=== PATIENT | male | born 1985 | race Hispanic/Latino ===

== ENCOUNTER 2025-06-20 15:46 | Emergency (ER) | payer OTHER, SELFPAY ==
[2025-06-20 15:51] VITALS: BP 130/78; PULSE 79; RESP 16; TEMP 36; O2SAT 100; BMI 31.7
--- NOTE | 2025-06-20 16:01 | CT_ITS ---
PROCEDURE: CT SPINE CERVICAL WITHOUT CONTRAST 06/20/2025 REASON FOR EXAM: INJURY/PAIN TECHNIQUE: Procedure Code: CTSPC Modality: CT Procedure: SPINE CERVICAL WITHOUT CONTRAS Coronal and Sagittal reconstruction series were provided. One or more dose reduction techniques were used (e.g., Automated exposure control, adjustment of the mA and/or kV according to patient size, use of iterative reconstruction technique. RADIATION DOSE SUMMARY: CTDlvol: 24.55 mGy DLP: 519.69 mGycm COMPARISON: None. FINDINGS: No acute fracture or subluxation. Straightening of the cervical lordosis is likely positional, or could reflect muscle spasm. No substantial degenerative changes appreciated. No prevertebral soft tissue swelling. Clear visualized lung apices. CT/Spine Cervical without Contras IMPRESSION: No acute fracture or subluxation. Reading Location: [id number]
--- NOTE | 2025-06-20 16:12 | EDS_ITS ---
HPI History of Present Illness Chief Complaint: Fall Detail of Chief Complaint: Fall down flight of steps Informant: patient Onset/Context/Timing Onset: Yesterday Mechanism/Context: Blunt Injury and Fall Location of pain/injuries: Right hip, Right thigh and - (Neck) Quality of Pain: Dull Location: Posterior neck and right hip region Current Severity: Mild Maximum Severity: Moderate Worsened by: Palpation and movement Relieved by: Nothing Associated Symptoms Associated Symptoms: Negative for Parasthesias, Weakness, Loss of function, Inability to ambulate, Loss of consciousness or Amnesia Narrative Narrative: Patient is a 39-year-old male. He is on a diabetic med. He was removing the door to the basement. When he pulled the last pin he lost his balance and went down the steps with the door. He states the door got wedged into the wall. He fell backwards hitting the back of his head. He had no loss of conscious. He is not amnestic. He denies headache. He denies nausea or vomiting. He denies double vision, blurred vision or loss of vision. He denies ringing in his ears or decreased hearing. He does complain of neck pain. He does complain of tingling in his right hand. This occurred since the fall. He denies chest pain, pressure or tightness. He denies pain with breathing. He denies shortness of breath at rest or activity. He denies abdominal pain. He denies nausea or vomiting. He denies dysuria, frequency, urgency or hematuria. He does complain of right hip pain which he localizes to the greater trochanteric region. He states he has pain with movement and weightbearing. He denies paresthesia, anesthesia or weakness in his lower extremities or left upper extremity. Prior similar symptoms: No Recent Illness/Hospitalization: No [facility] Medical History Diabetes mellitus Home Medications ?Medication ?Instructions ?Recorded ?Last Taken ?Type naproxen 500 mg tablet 500 mg PO BID #14 tabs 06/20 Unknown Rx Allergy/AdvReac Type Severity Reaction Status Date / Time No Known Allergies Allergy Verified 06/20/25 15:52 Social History (Updated 06/20/25 @ 16:[address] Lavell Remy MD) household members: spouse Smoking Status: Never smoker ROS ROS ED Eyes Eyes: Denies blurry vision or change in vision ENT ENT ED: Denies ear pain, rhinorrhea or sore throat Cardiovascular Cardiovascular: Denies chest pain, palpitations or racing heartbeat Respiratory/Chest Respiratory/Chest: Denies cough, dyspnea or dyspnea on exertion Gastrointestinal Gastrointestinal: Denies abdominal pain, melena, nausea or vomiting Genitourinary Genitourinary ED: Denies dysuria, hematuria or urinary frequency Musculoskeletal Musculoskeletal: Reports neck pain and other Details: Detailed HPI narrative ; Denies arthralgias, back pain or myalgias Integumentary Reports Abrasions and other Details: Abrasion posterior right parietal occipital region. Neurologic Neurologic: Denies headache(s), paresthesias or weakness Endocrine Endocrinology: Denies cold intolerance or heat intolerance Hematologic/Lymphatic Hematologic/Lymphatic: Denies easy bleeding or easy bruising EXAM Physical Exam Const Vital Signs: 06/20/25 15:51 06/20/25 16:00 Temperature 96.8 F L Temperature Source Temporal Pulse Rate 79 Respiratory Rate 16 Respiratory Effort Normal Respiratory Depth Normal Respiratory Pattern Normal Blood Pressure 130/78 H Blood Pressure Mean 95 Pulse Ox 100 Oxygen Delivery Method Room Air Room Air Positive well nourished and well developed General Appearance ED: well developed and NAD HEENT Denies TM's clear HEENT Narrative: There is no dental trauma. Uvula midline. No deviation tongue or protrusion. trauma and tenderness; Negative for atraumatic Nose: Negative for septum abnormal Tympanic Membrane ED: Negative for TM's clear Eyes PERRL and EOMs intact bilaterally General Eye ED: Yes other Other Details: There is no nystagmus. There is no subconjunctival hemorrhage. Neck Neck Narrative: C3-C5. General: tenderness Chest Wall inspection of chest normal and palpation of chest normal Resp normal respiratory effort and clear to auscultation bilaterally Resp Narrative: There is no crepitus or subcutaneous air. Cardio regular rhythm, S1 normal heart sound, S2 normal heart sound and no murmurs Cardio Narrative: There is no Emir's crunch. Rate: regular rate GI normal to inspection, nondistended, normoactive bowel sounds, non-tender, non- distended and no masses Auscultation: normoactive bowel sounds Palpation: soft Back/Spine normal to inspection and no thoracic nor lumbar tenderness Extremity normal to inspection and full ROM Extremity Narrative: Axillary, median, radial and ulnar function intact. Bicep, brachialis and tricep reflex are 1+. Patella and ankle reflex are 1+. There is no clonus at the ankles. Abrasion superior to the right iliac wing. Neuro oriented x3, CN's II-XII intact bilaterally, moves all extremities, no focal motor deficits and no sensory deficits noted [place] Coma Scale: document GCS findings Spontaneous Obeys Commands Oriented 15 Motor Exam: strength 5/5 throughout Deep Tendon Reflexes: Rt Triceps (C7): 1+, Lt Triceps (C7): 1+, Rt Biceps (C5, C6): 1+, Lt Biceps (C5, C6): 1+, Rt Brachioradialis (C6): 1+, Lt Brachioradialis (C6): 1+, Rt Patellar (L4): 1+, Lt Patellar (L4): 1+, Rt Ankle (S1): 1+ and Lt Ankle (S1): 1+ Deep Tendon Reflexes Back: Rt Patellar (L4): 1+, Lt Patellar (L4): 1+, Rt Ankle (S1): 1+ and Lt Ankle (S1): 1+ Plantar Reflex: Downgoing: bilateral Psych mental status grossly normal and thought process normal Skin no rashes or lesions noted, No no wounds, skin turgor normal and no jaundice Trauma: abrasion MDM MDM MDM Narrative Medical decision making narrative: Based on the CT [place] head rule and [place] rule imaging of the brain is not indicated. Since he does have posterior neck pain and paresthesias of the right upper extremity CT T of the neck was obtained. Because he has significant tenderness over the l right or greater trochanteric region will obtain x-ray of the hip to evaluate contusion versus fracture. There is bruising noted superior to the iliac wing on the right. Patient was ordered pain medicine which she declined. Radiography Chest X-Ray - ED: Read by ED Physician (Three-view x-ray of the hip was independent reviewed interpreted by me as negative for fracture, subluxation dislocation. There is abnormality of the femoral neck, proximal femur or pelvis. The sacrum appears normal as well.) Diagnostic Testing: Clinical Impression(s) from Imaging Studies Cervical Spine CT 06/20/25 16:01 IMPRESSION: No acute fracture or subluxation. Reading Location: [facility] I did review the CT of the neck. I did not appreciate any obvious abnormality. Awaiting formal read by radiologist. Treatment and Re-Evaluation Narrative: Patient and were informed of results. Plan is to discharge home with appropriate home-going instructions. Discharge Plan Triage Chief Complaint: Fall ED Provider: Lavell Remy Dx/Rx/DC Orders Clinical Impression: Acute cervical myofascial strain, Contusion of scalp, initial encounter, Abrasion of scalp, Contusion of right hip, initial encounter, Contusion of lower back, Fall down stairs Instructions: ED Contusion, Lower Extremity, ED Neck Sprain or Strain Prescriptions: New naproxen 500 mg tablet 500 mg PO BID Qty: 14 0RF Stand Alone Forms: ED Work / School Excuse Primary Care Provider: Isabel Mcconnell NP Referrals: Isabel Mcconnell NP, [employer] [Primary Care Provider, Palliative Medicine] - 10-14 Days if not better Activity Restrictions/Additional Instructions: 1. You will feel worse over the next 24 to 48 hours. 2. You will hurt for an additional 3 to 7 days if not longer. 3. Apply ice to areas of discomfort 6-8 times a day. Use of heating pad will make your pain worse. Print Language: Filipino Disposition Disposition: Home, Self Care Discharge Date/Time: 06/20/25 17:25
--- NOTE | 2025-06-20 16:20 | RAD_ITS ---
PROCEDURE: HIP, UNI W/ PELVIS 2-3 VIEWS 06/20/2025 REASON FOR EXAM: INJURY/PAIN TECHNIQUE: Procedure Code: RAD Modality: DX Procedure: HIP, UNI W/ PELVIS 2-3 VIEWS Laterality: FINDINGS: Bones: Joints: Soft tissues: Other: Reading Location: [facility]
[2025-06-20 17:00] VITALS: BP 124/77; PULSE 66; RESP 14; TEMP 36.6; O2SAT 99
== END 2025-06-20 17:25 | disposition home or self-care (01) ==
PROVIDERS: Emergency Provider Emergency Medicine; PCP Nurse Practitioner Family; Visit Provider Emergency Medicine
DX: S16.1XXA Strain of muscle, fascia and tendon at neck level, initial encounter (principal); E11.9 Type 2 diabetes mellitus without complications; S00.01XA Abrasion of scalp, initial encounter; S20.229A Contusion of unspecified back wall of thorax, initial encounter; S70.01XA Contusion of right hip, initial encounter; S00.03XA Contusion of scalp, initial encounter; W10.9XXA Fall (on) (from) unspecified stairs and steps, initial encounter
CPT/HCPCS: 72125; 73502; 99282